=== PATIENT | female | born 1985 | race African-American/Black ===

== ENCOUNTER 2017-10-05 11:35 | Emergency (ER) | payer OTHER ==
[~2017-10-05] VITALS: Ht 167.6 cm; Wt 83.9 kg
[2017-10-05] MEDS ORDERED: MEDROLDOSEPACK PO (12:21)
[2017-10-05] MEDS ORDERED: KEFLEX500 M1 PO (12:21)
[2017-10-05] MEDS ORDERED: CLARITIN10 MG PO (12:21)
[2017-10-05] MEDS ORDERED: AFRIN15 ML NASAL (12:21)
[2017-10-05 12:29] VITALS: BP 135/89
== END 2017-10-05 12:30 | disposition home or self-care (01) ==
LOC: M.ERS 11:35
DX: J01.00 Acute maxillary sinusitis, unspecified (principal); L73.2 Hidradenitis suppurativa; E11.9 Type 2 diabetes mellitus without complications; E78.5 Hyperlipidemia, unspecified